=== PATIENT | male | born 2000 | race Caucasian/White ===

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

== ENCOUNTER 2022-01-11 16:15 | Emergency (ER) | payer BC, SELFPAY ==
[2022-01-11 16:19] VITALS: BP 172/105; PULSE 119; TEMP 36.5; O2SAT 99
[2022-01-11 17:04] LABS: Bilirubin Negative (Negative); Blood Negative (Negative); Clarity Clear (Clear); Glucose Negative (Negative); Ketones Negative (Negative); Leukocyte Esterase Negative (Negative); Nitrite Negative (Negative); Specific Gravity 1.015 (1.005-1.025); Urobilinogen 0.2 EU/dL (Up TO 0.2)
[2022-01-11 17:19] LABS: *AMPHETAMINES SCREEN URINE Negative (Negative); *BARBITURATES SCREEN URINE Negative (Negative); *BENZODIAZEPINES SCREEN URINE Negative (Negative); Cannabinoids THC Negative (Negative); Cocaine Screen,Urine Negative (Negative); METHADONE URINE SCREEN Negative (Negative); OPIATES URINE SCREEN Negative (Negative)
[2022-01-11 17:20] LABS: Tricyclic Antidepressants Negative (Negative)
[2022-01-11 17:33] LABS: Abs Immature Grans 0.02 10^3/uL (0.0-0.06); Absolute Basophil Count 0.08 10^3/uL (0.0-0.2); Absolute Eosinophil Count 0.02 10^3/uL (0.0-0.7); Absolute Lymphocyte Count 1.38 10^3/uL (1.2-3.4); Absolute Monocyte Count 0.69 10^3/uL (0.1-0.8); Absolute Neutrophil Count 5.29 10^3/uL (1.2-6.7); Basophils % 1.1; Eosinophils % 0.3; HCT 49.2 % (40.0-50.0); HGB 16.6 g/dL (13.5-17.5); Immature Grans % 0.3; Lymphocytes % 18.4; MCH 32.2 pg (27.0-33.0); MCHC 33.7 % (32.0-36.0); MCV 95.3 fL (80-95); MPV 9.6 fL (8.0-11.0); Monocytes % 9.2; Neutrophils % 70.7; Nucleated RBC 0 %; Platelet Count 249 10^3/uL (130-400); RBC 5.16 10^6/uL (4.36-5.78); RDW 11.7 % (11.8-14.1); RDW-SD 41.1 fL; WBC 7.48 10^3/uL (4.4-10.8)
[2022-01-11 17:57] LABS: ALT 34 U/L (16-63); AST 13 U/L (15-37); Albumin 4.5 g/dL (3.4-5.0); Alkaline Phosphatase 85 U/L (46-116); Anion Gap 9.7 mmol/L (3-11); BUN 11 mg/dL (7-18); Bilirubin, Total 0.7 mg/dL (0.2-1.0); CO2 26.3 mmol/L (21.0-32.0); CREATININE 0.6 mg/dL (0.70-1.30); Calcium 9.2 mg/dL (8.5-10.1); Chloride 102 mmol/L (98-107); Glucose 94 mg/dL (74-106); Potassium 3.6 mmol/L (3.5-5.1); Sodium 138 mmol/L (136-145); TSH (W/Ref FT4) 1.52 uIU/mL (0.52-4.13); Total Protein 8.1 g/dL (6.4-8.2)
[2022-01-11 18:00] LABS: Acetaminophen < 2 ug/mL (10-30); Salicylate < 2.8 mg/dL (<2.8)
--- NOTE | 2022-01-11 18:06 | ED.GENADUL_ITS ---
Discharge Plan Disposition Patient Disposition: HOME Condition: Improving Discharge Details Clinical Impression: Depression Primary Care Provider: Saravanan Shah ED Provider: Raphael Le Home Meds and New Rx's Prescriptions: Continued multivitamin Tablet 1 tab PO DAILY 0RF Discharge Instructions Instructions: Depression (ED) Additional Instructions: Please follow-up with [facility] human services tomorrow at 10 AM as discussed with them fay. The office is located at [address] [place] [address] in [facility]. The office number is [phone]. Continue your efforts to decrease or minimize alcohol use. Return to the emergency department for any new concerns. Medical Decision Making 21-year-old male presents from outpatient. He states he had increased use of alcohol drinking up to half a liter of gin per day. He said ongoing depression with fleeting thoughts of harming himself but states that he has no current or active thoughts. He states his mood is down and his sleep has been poor. Patient underwent medical screening examination including laboratory analysis. He is medically stable further evaluation by medical office worker. Labs are reassuring. Patient evaluated by medical office worker and plan for outpatient follow-up tomorrow morning initiated. Patient stable, agrees to plan of safety, is appropriate for discharge. HPI General Mode of arrival: ambulatory . Date/Time Provider Initiated Documentation: 01/11/22 16:18 . Limitations to Documentation: no limitations . Information obtained by: patient . History of Present Illness 21 year old M presents to the emergency department with the chief complaint of Depression, alcohol use that has been escalating, described as moderate, Patient started experiencing this day(s) and it has been constant. improves with No relieving factors improve symptom(s), No exacerbating factors reported . Patient notes no other symptoms.. Patient did receive the following treatments prior to arrival, none Related Data Home Medications Medication Instructions Recorded Confirmed multivitamin 1 tab PO DAILY 08/11/20 01/11/22 Allergies Allergy/AdvReac Type Severity Reaction Status Date / Time shellfish derived Allergy Other (See Unverified 01/11/22 16:25 Comment) General Stated Complaint: PsychEval OLVNI: 2 Review of Systems Narrative: Denies current thoughts of harming himself or others. States that he has had fleeting thoughts of suicide. No recent medical illness. PFSH All Active Problems (Updated 01/11/22 @ 19:25 by Raphael Le MD) Depression (Chronic) No-show for appointment (Acute) Bursitis of right shoulder (Acute) Loose body in right shoulder (Acute) Labral tear of shoulder (Acute) Instability of right shoulder joint (Acute) Chronic major depressive disorder (Acute) Traumatic anterior dislocation of right shoulder (Acute 06/24/19) Routine child health exam (Acute 05/21/13) Pes planus (Acute 05/21/13) Learning difficulty (Acute 05/21/13) WORKING MEMORY ISSUES Elevated BP without diagnosis of hypertension (Acute 07/26/17) Medical History Body mass index, pediatric, 85th percentile to less than 95th percentile for age (07/15/15) Croup 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 Father No problems noted. Sister Essential hypertension Sister No problems noted. Social History Smoking/Tobacco Use Status: Never Smoking risk assessment performed?: Yes Alcohol Intake: current Alcohol Intake frequency: 3 or more drinks per day Drug use: Never Substance use type: does not use Household members: family Education Level: high school Details: [employer] senior, transferring to Pets and animals: Yes Pets and animals: dog(s) Sexually active: No Current gender identity: male Seatbelt use: always Helmet use: No Water heater temp set <120 deg: Yes Fire extinguisher in home: Yes Carbon monox detector in home: Yes Firearms in home: Yes Firearms unloaded and locked: Yes Do you feel safe at home: Yes Do you feel safe in your relationship?: Yes Exam Narrative Exam Narrative: GEN: awake, alert, oriented 3. Pleasant, well groomed, interactive. HEAD: Normocephalic, atraumatic ENT: Mucous membranes moist, oropharynx unremarkable, External ear exam unremarkable EYES: PERRL, EOMI NECK: Full ROM, no CARLOS, no menigismus CHEST/RESP: Nontender, clear to auscultation bilateral, no wheeze/rhonchi/rales CARDIOVASCULAR: RRR, no murmur, rub rajwinder. 2+ Rad pulse bilateral ABDOMEN: Soft, nontender, no mass. +Bowel sounds EXT: Full ROM, no edema, no rash Neuro: Grossly normal neurologic exam, conversant, interactive. Psych: Speech fluent, thoughts congruent, affect flat Course Vital Signs Vital signs: Vital Signs Temperature 36.5 C 01/11/22 16:19 Pulse 119 H 01/11/22 16:19 Blood Pressure 172/105 H 01/11/22 16:19 Pulse Oximetry 99 01/11/22 16:19 Temperature 36.5 C 01/11/22 16:19 Temperature Source Temporal Artery Scan 01/11/22 16:19 Pulse 119 H 01/11/22 16:19 Respiratory Effort Non-Labored 01/11/22 16:25 Blood Pressure 172/105 H 01/11/22 16:19 Blood Pressure Position Sitting 01/11/22 16:19 Pulse Oximetry 99 01/11/22 16:19 Oxygen Delivery Method Room Air 01/11/22 16:19 Oxygen Flow Rate 0 01/11/22 16:19 Lab/Test Results Lab/Test Results: Laboratory Tests Range/Units 01/11/22 01/11/22 01/11/22 16:10 16:40 17:18 WBC (4.4-10.8) 10^3/uL RBC (4.36-5.78) 10^6/uL Hgb (13.5-17.5) g/dL Hct (40.0-50.0) % MCV (80-95) fL MCH (27.0-33.0) pg MCHC (32.0-36.0) % RDW (11.8-14.1) % Plt Count (130-400) 10^3/uL MPV (8.0-11.0) fL Immature Gran % Neutrophils % Lymphocytes % Monocytes % Eosinophils % Basophils % Nucleated RBC % % Absolute Neutrophils (1.2-6.7) 10^3/uL Absolute Lymphocytes (1.2-3.4) 10^3/uL Absolute Monocytes (0.1-0.8) 10^3/uL Absolute Eosinophils (0.0-0.7) 10^3/uL Absolute Basophils (0.0-0.2) 10^3/uL Sodium (136-145) mmol/L 138 Potassium (3.5-5.1) mmol/L 3.6 Chloride (98-107) mmol/L 102 Carbon Dioxide (21.0-32.0) mmol/L 26.3 Anion Gap (3-11) mmol/L 9.7 BUN (7-18) mg/dL 11 Creatinine (0.70-1.30) mg/dL 0.6 L Estimated GFR/1.73 m2 (mL/min/1.73m2) >= 60.00 Glucose (74-106) mg/dL 94 Calcium (8.5-10.1) mg/dL 9.2 Total Bilirubin (0.2-1.0) mg/dL 0.7 AST (15-37) U/L 13 L ALT (16-63) U/L 34 Alkaline Phosphatase (46-116) U/L 85 Total Protein (6.4-8.2) g/dL 8.1 Albumin (3.4-5.0) g/dL 4.5 TSH (0.52-4.13) uIU/mL 1.52 Urine Color (Yellow) Yellow Urine Clarity (Clear) Clear Urine pH (5-8) 7.0 Ur Specific [place] (1.005-1.025) 1.015 Urine Protein (Negative) mg/dL Negative Urine Ketones (Negative) mg/dL Negative Urine Blood (Negative) Negative Urine Nitrite (Negative) Negative Urine Bilirubin (Negative) Negative Urine Urobilinogen (Up TO 0.2) EU/dL 0.2 Ur Leukocyte Esterase (Negative) Negative Urine Glucose (Negative) mg/dL Negative Salicylates (<2.8) mg/dL Urine Opiates Screen (Negative) Negative Urine Methadone Screen (Negative) Negative Acetaminophen (10-30) ug/mL Ur Barbiturates Screen (Negative) Negative Ur Tricyclics Screen (Negative) Negative Ur Amphetamines Screen (Negative) Negative U Benzodiazepines Scrn (Negative) Negative Urine Cocaine Screen (Negative) Negative Ur THC Screen (Negative) Negative Range/Units 01/11/22 01/11/22 17:18 17:18 WBC (4.4-10.8) 10^3/uL 7.48 RBC (4.36-5.78) 10^6/uL 5.16 Hgb (13.5-17.5) g/dL 16.6 Hct (40.0-50.0) % 49.2 MCV (80-95) fL 95.3 H MCH (27.0-33.0) pg 32.2 MCHC (32.0-36.0) % 33.7 RDW (11.8-14.1) % 11.7 L Plt Count (130-400) 10^3/uL 249 MPV (8.0-11.0) fL 9.6 Immature Gran % 0.3 Neutrophils % 70.7 Lymphocytes % 18.4 Monocytes % 9.2 Eosinophils % 0.3 Basophils % 1.1 Nucleated RBC % % 0 Absolute Neutrophils (1.2-6.7) 10^3/uL 5.29 Absolute Lymphocytes (1.2-3.4) 10^3/uL 1.38 Absolute Monocytes (0.1-0.8) 10^3/uL 0.69 Absolute Eosinophils (0.0-0.7) 10^3/uL 0.02 Absolute Basophils (0.0-0.2) 10^3/uL 0.08 Sodium (136-145) mmol/L Potassium (3.5-5.1) mmol/L Chloride (98-107) mmol/L Carbon Dioxide (21.0-32.0) mmol/L Anion Gap (3-11) mmol/L BUN (7-18) mg/dL Creatinine (0.70-1.30) mg/dL Estimated GFR/1.73 m2 (mL/min/1.73m2) Glucose (74-106) mg/dL Calcium (8.5-10.1) mg/dL Total Bilirubin (0.2-1.0) mg/dL AST (15-37) U/L ALT (16-63) U/L Alkaline Phosphatase (46-116) U/L Total Protein (6.4-8.2) g/dL Albumin (3.4-5.0) g/dL TSH (0.52-4.13) uIU/mL Urine Color (Yellow) Urine Clarity (Clear) Urine pH (5-8) Ur Specific [place] (1.005-1.025) Urine Protein (Negative) mg/dL Urine Ketones (Negative) mg/dL Urine Blood (Negative) Urine Nitrite (Negative) Urine Bilirubin (Negative) Urine Urobilinogen (Up TO 0.2) EU/dL Ur Leukocyte Esterase (Negative) Urine Glucose (Negative) mg/dL Salicylates (<2.8) mg/dL < 2.8 Urine Opiates Screen (Negative) Urine Methadone Screen (Negative) Acetaminophen (10-30) ug/mL < 2 Ur Barbiturates Screen (Negative) Ur Tricyclics Screen (Negative) Ur Amphetamines Screen (Negative) U Benzodiazepines Scrn (Negative) Urine Cocaine Screen (Negative) Ur THC Screen (Negative) PAWSS Have you Been Recently Intoxicated or Drunk Within the Last 30 days?: Yes Have you Ever Experienced Previous Episodes of Alcohol Withdrawal?: Yes Have you ever Experienced Withdrawal Seizures?: Yes Have you ever Experienced Delirium Tremens(DT)s?: Yes Have you ever undergone Alcohol Rehabilitation Treatment (i.e, inpt ot outpatient treatment programs)?: No Have you ever Experienced Blackouts?: Yes Have you ever Combined Alcohol with other Downers within the last 90 days?: No Have you ever Combined Alcohol with any other Substance of Abuse during the last 90 days?: No Positive Blood Alcohol level on Presentation? [PCS.BAL]: Yes Evidence of Increased Autonomic Activity (i.e. HR>120, tremor, sweating, agitation, nausea)?: Yes Result: 7
[2022-01-11 18:47] LABS: ETHANOL BLOOD < 3.0 mg/dL (<10)
[2022-01-11 19:30] VITALS: BP 139/78; PULSE 79; RESP 14; TEMP 37.3; O2SAT 100
--- NOTE | 2022-01-12 08:27 | PDOC.MHCN_ITS ---
Date of service: 01/11/22 Time of Service: 19:00 Mental Health Crisis Note Presenting Issue How did you arrive at the ED and why did you come: Mr. Leyva presented to the ED for concerns of substance use, per his report. He added that he is looking to get connected to services for his ETOH consumption, and possible medications for depression. Precipitating Factors Mr. Leyva denied current suicidal ideation, intention of harming himself or others. He noted that when he drinks he does have fleeting thoughts of dying. He denies previous suicidal behavior. He denies history of homicidal behavior. He denies current or hx of delusions or hallucinations. Disposition BEHAVIOR: Engaging and participated well in the conversation, Shared information freely and was sitting up in the bed EYE CONTACT: Sustained MOOD: Fair and engaged AFFECT: full and engaged APPETITE: Not Applicable SLEEP(trouble falling/staying asleep: Denies concerns Plan Mr. Leyva is to go home with his sister and present to [facility] on 01/12 or 01/13 to complete paperwork and discuss options for his concerns with substance use. He is also open to discussing options pertaining to coping skills for his depression as well as therapy. This plan was discussed with the attending physi eyal who agreed with this plan. Provisional Diagnosis Major Depressive disorder, Moderate, single episode. Signature Clinician's Name/Title: ABDIRAHMAN Gama
== END 2022-01-11 19:35 | disposition home or self-care (01) ==
PROVIDERS: Emergency Provider Emergency Medicine; PCP Pediatrics
DX: F32.A Depression, unspecified (principal); F10.10 Alcohol abuse, uncomplicated
CPT/HCPCS: 80053; 80307; 99283; 80320; 80329; 81003; 84443; 85025

== ENCOUNTER 2024-09-22 15:00 | Emergency (ER) | payer BC, SELFPAY ==
[2024-09-22 15:08] VITALS: BP 120/81; PULSE 114; RESP 14; TEMP 39.2; O2SAT 96
--- NOTE | 2024-09-22 15:30 | DI.RAD_ITS ---
Exam(s) XR CHEST 2V PA LATERAL EXAM: XR CHEST 2V PA LATERAL CLINICAL HISTORY: FEVER, COUGH TECHNIQUE: 2D digital imaging was performed of the chest. Two images were obtained. PA and lateral views were obtained. COMPARISON: CR,DOC XR CHEST PORTABLE OR 1V from 02/19/2023 FINDINGS: MEDIASTINUM: Normal. HEART: Normal. PULMONARY VASCULATURE: Normal. LUNGS: Bilateral pulmonary opacities are present suggesting pneumonia. PLEURAL SPACE: No pleural effusion or pneumothorax. BONE:Within normal limits for the patient's age. OTHER FINDINGS:Normal. IMPRESSION: Bilateral opacities suggesting multifocal pneumonia. A follow-up chest x-ray is recommended to docum ent complete resolution. DATA REPOSITORY: RADIATION DOSE DELIVERED:
[2024-09-22] MEDS: Ondansetron O.D.T. 4 MG TABEF PO (15:39)
[2024-09-22] MEDS: Acetaminophen 500 MG TAB 1000 MG PO (15:39)
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
[2024-09-22 16:08] VITALS: RESP 16
[2024-09-22] MEDS: levoFLOXacin 750 MG/150 ML BAG 100 MG IVPB (16:43)
--- NOTE | 2024-09-22 16:46 | DI.VRAD_ITS ---
PROCEDURE INFORMATION: Exam: XR Chest Exam date and time: 09/22/2024 4:05 PM Age: 24 years old Clinical indication: Cough and fever; Patient HX: Fever, cough; Per PT: Since 09/18 TECHNIQUE: Imaging protocol: Radiologic exam of the chest. Views: 2 views. COMPARISON: DOC XR CHEST PORTABLE OR 1V 02/19/2023 1:38 PM FINDINGS: Lungs: There is patchy consolidation in both lungs. Pleural spaces: No pleural effusion or pneumothorax is seen. Heart/Mediastinum: The heart appears normal in size. Bones/joints: The visualized bony structures appear grossly intact, as seen. IMPRESSION: Patchy consolidation in both lungs. Multifocal pneumonia suspected primarily. Alternative pathology not excluded. Dictated and Authenticated by: Justin Russo MD. Ordering:ENID Glynn MD
[2024-09-22 17:00] LABS: BE (Venous) 3 mmol/L (-2-3); HCO3 (Venous) 27 mmol/L (23-28); O2 Sat (Venous) 75 %; TCO2 (Venous) 24 mmol/L (24-29); pCO2 (Venous) 40 mmHg (41-51); pH (Venous) 7.43 (7.31-7.41); pO2 (Venous) 38 mmHg
[2024-09-22 17:05] LABS: Abs Immature Grans 0.03 10^3/uL (0.0-0.06); Absolute Basophil Count 0.03 10^3/uL (0.0-0.2); Absolute Eosinophil Count 0.01 10^3/uL (0.0-0.7); Absolute Lymphocyte Count 1.32 10^3/uL (1.2-3.4); Absolute Monocyte Count 0.93 10^3/uL (0.1-0.8); Absolute Neutrophil Count 5.37 10^3/uL (1.2-6.7); Basophils % 0.4 %; Eosinophils % 0.1 %; HCT 38.7 % (40.0-50.0); HGB 13.7 g/dL (13.5-17.5); Immature Grans % 0.4 %; Lymphocytes % 17.2 %; MCH 31.9 pg (27.0-33.0); MCHC 35.4 % (32.0-36.0); MCV 90 fL (80-95); MPV 10.4 fL (8.0-11.0); Monocytes % 12.1 %; Neutrophils % 69.8 %; Platelet Count 176 10^3/uL (130-400); RDW 12.2 % (11.8-14.1); RDW-SD 40.7 fL; WBC 7.69 10^3/uL (4.4-10.8)
--- NOTE | 2024-09-22 17:06 | W.EDPROG ---
Date of service: 09/22/24 Time of Service: 17:06 Medical Decision Making I received signout on this 24-year-old male with cough and bilateral opacities suggestive of multifocal pneumonia. Patient has a venous blood gas with no acidemia nor hypercarbia. He is pending labs he had negative COVID and influenza swab. Blood cultures have been drawn. Will reassess following labs. CBC lacks anemia thrombocytopenia and leukocytosis. 5:26 PM Elevated LDH level. 5:42 PM Comprehensive metabolic panel showing no RAMIRO. No LFT abnormalities. Mild anion gap. Mild hyponatremia. No acute electrolyte abnormalities. Reassuring negative proBNP. Patient has no risk factors for HIV. He has had no unintentional weight loss. He denies IV drug use and he denies history of sexual intercourse with men. He does have an elevated LDH which raise the possibility of PCP pneumonia however given that he is not on immunosuppressive medications and has no history of primary immunodeficiencies severe malnutrition or cancer I did not feel he required HIV screening test. 5:54 PM Patient was feeling improved. He was not hypoxic. Will repeat heart rate which is likely tachycardic secondary to fever. Will complete ambulatory saturation. I asked asked [facility] coordinator Emily that the patient seen within the next 6 days by a primary care provider. He will benefit from a repeat chest x-ray. He maintained his oxygen saturation well ambulating. Will ensure that his tachycardia resolved with oral fluids. He will go to the T doc as he does not have a PCP. I advised patient to return to the ED if he developed any shortness of breath syncope or had chest pain or was unable to take his antibiotics. His port score was 22 making him class I risk and 0.1% risk of mortality as result he is appropriate for outpatient management. 6:40 PM Repeat heart rate 93 bpm. Patient tolerated p.o. in ED. He understood his return indications. Quality:SDOH Health Related Social Needs: No Data to Display Sign Out Sign Out Data: Sign Out Comment: Fever, URI symptoms x5 days was hunting in [place] no significant PMH flu, covid neg CXR = bilateral infiltrates labs, cultures, abx ordered. Dispo pending results & re-evaluation. Last updated by Destiny Fonseca MD at 09/22/24 16:34 Discharge Plan Disposition Patient Disposition: Home Discharge Details Clinical Impression: Multifocal pneumonia Primary Care Provider: None,None ED Provider: Milton Silva [place] Meds and New Rx's Prescriptions: New levofloxacin 750 mg tablet 750 mg PO DAILY Qty: 7 0RF Discharge Instructions Instructions: Community-acquired pneumonia in adults Additional Instructions: You are seen in the emergency department for your cough. You are diagnosed with a pneumonia for which you are receiving antibiotics that you should take as directed. You are receiving a primary care provider and you should be seen for reassessment in the next 6 days with a repeat chest x-ray. If you develop chest pain passout feel more short of breath or cannot keep down your antibiotics as we discussed please return to the emergency department. For your pain please take medications as follows: 1. Take acetaminophen (Tylenol), 1,000 mg (two 500 mg tabs) every 6 hours [2. Take ibuprofen (Advil), 400 mg every 6 hours.]
[2024-09-22 17:21] LABS: LDH 343 U/L (85-227)
[2024-09-22 17:28] LABS: ALT 42 U/L (16-63); AST 30 U/L (15-37); Albumin 3.6 g/dL (3.4-5.0); Alkaline Phosphatase 66 U/L (46-116); Anion Gap 12.8 mmol/L (3-11); BUN 8 mg/dL (7-18); Bilirubin, Total 0.83 mg/dL (0.2-1.0); CO2 26.2 mmol/L (21.0-32.0); CREATININE 0.8 mg/dL (0.70-1.30); Calcium 8.7 mg/dL (8.5-10.1); Chloride 96 mmol/L (98-107); Estimated GFR 128.33 (mL/min/1.73m2); Glucose 105 mg/dL (74-106); NT-proBNP 20 pg/mL (<300); Potassium 3.5 mmol/L (3.5-5.1); Sodium 135 mmol/L (136-145); Total Protein 7.6 g/dL (6.4-8.2)
[2024-09-22 18:13] VITALS: BP 126/76; PULSE 102; RESP 18; O2SAT 97
[2024-09-22 18:38] VITALS: PULSE 93
[2024-09-23 00:54] LABS: Adenovirus DNA Result Negative (Negative); Metapneumovirus RNA Result Negative (Negative); Parainfluenza Type1 RNA Result Negative (Negative); Parainfluenza Type2 RNA Result Negative (Negative); Parainfluenza Type3 RNA Result Negative (Negative); Parainfluenza Type4 RNA Result Negative (Negative); Rhinovirus RNA Result Negative (Negative)
[2024-09-24 10:01] LABS: Lyme Ab w Rflx to Lyme Confirm Negative (Negative)
[2024-09-25 14:08] LABS: Anaplasma phagocytophilum Negative (Negative); B. miyamotoi PCR Negative (Negative); Babesia divergens/MO-1 Negative (Negative); Babesia duncani Negative (Negative); Babesia microti Negative (Negative); Ehrlichia chaffeensis Negative (Negative); Ehrlichia ewingii/canis Negative (Negative); Ehrlichia muris eauclairensis Negative (Negative)
== END 2024-09-22 19:01 | disposition home or self-care (01) ==
PROVIDERS: Emergency Medicine; Emergency Provider Emergency Medicine
DX: J18.9 Pneumonia, unspecified organism (principal); R50.9 Fever, unspecified; R05.1 Acute cough; R09.81 Nasal congestion
CPT/HCPCS: 00123; 36415; 80053; 82805; 87040; 87632; 87798; 96365; 96366; 99284; 71046; 83615; 83880; 85025; 86618; J1956